=== PATIENT | male | born 1985 | race Caucasian/White ===

== ENCOUNTER 2018-03-13 19:57 | Emergency (ER) | payer OTHER ==
[2018-03-13] MEDS: LIDOCAINE 1% (MDV) 20 ML INJ SC (22:00)
[2018-03-13] MEDS: HYDROCODONE/APAP (5/325) TAB PO (22:00)
[2018-03-13] MEDS: DIPHTH/TET/ACEL PERTUSS (ADULT) 0.5 ML VIAL IM* (22:01)
[2018-03-13] MEDS: ONDANSETRON (ODT) 4 MG TAB ODT (22:01)
[2018-03-13 23:31] LABS: HEPATITIS B SURFACE ANTIGEN NEGATIVE (NEGATIVE)
[2018-03-13 23:48] LABS: HEPATITIS C VIRAL ANTIBODY NEGATIVE (NEGATIVE); HIV 1&2 ANTIBODY NEGATIVE (NEGATIVE)
[2018-03-13 23:49] LABS: HEPATITIS B SURFACE ANTIBODY POSITIVE (NEGATIVE)
== END 2018-03-13 23:12 | disposition home or self-care (01) ==
LOC: FTE 23:12
DX: S61.216A Laceration without foreign body of right little finger without damage to nail, initial encounter (principal); Y04.8XXA Assault by other bodily force, initial encounter; Z23 Encounter for immunization
CPT/HCPCS: 12001; 73110-RT; 73130-RT; 86703; 86706; 86803; 87340; 90471; 90715; 99284-25

== ENCOUNTER 2018-07-22 21:36 | Emergency (ER) | payer OTHER ==
[2018-07-22] MEDS: MECLIZINE 12.5 MG TAB PO (22:54)
[2018-07-22] MEDS: ONDANSETRON (ODT) 4 MG TAB ODT (22:54)
== END 2018-07-23 00:49 | disposition home or self-care (01) ==
LOC: FTE 07-23 00:49
DX: R42 Dizziness and giddiness (principal); F17.210 Nicotine dependence, cigarettes, uncomplicated
CPT/HCPCS: 82962; 99283